=== PATIENT | female | born 1995 | race Caucasian/White ===

== ENCOUNTER 2017-03-11 09:48 | Emergency (ER) | payer MEDICAID ==
--- NOTE | 2017-03-11 10:35 | EDM.PDOC ---
ED HPI GENERAL MEDICAL PROBLEM - General Chief Complaint: RN [facility] Problem Stated Complaint: IUD ISSUES Time Seen by Provider: 03/11/17 10:00 Source of Information: Reports: Patient History Limitations: Reports: No Limitations - History of Present Illness INITIAL COMMENTS - FREE TEXT/NARRATIVE: Azalia comes to [facility] ED with pelvic pain, spotting, and desire to have IUD removed. An IUD was inserted at [facility] in [facility] about 10 weeks ago, and she has been having issues with spotting and cramps ever since. During coitus last pm, sxs appeared to escalate. She can still feel the string. She has taken no meds. ED ROS GENERAL - Review of Systems Review Of Systems: ROS reveals no pertinent complaints other than HPI. ED EXAM, GENERAL - Physical Exam Exam: See Below Exam Limited By: No Limitations General Appearance: Alert, WD/WN, No Apparent Distress, Anxious Head: Normocephalic Neck: Normal Inspection, Supple, Non-Tender Respiratory/Chest: Lungs Clear, Normal Breath Sounds Cardiovascular: Regular Rate, Rhythm, No Murmur GI/Abdominal: Normal Bowel Sounds, Soft, Non-Tender, No Organomegaly, No Distention, No Mass (Female) Exam: Normal External Exam, Cervical Discharge (BRB, string visible) , Vaginal Bleeding Back Exam: Normal Inspection Extremities: Normal Inspection Neurological: Alert, Oriented, CN II-XII Intact, Normal Cognition, Normal Gait, No Motor/Sensory Deficits Psychiatric: Normal Affect, Anxious Skin Exam: Warm, Dry Lymphatic: No Adenopathy ED GENERAL MEDICAL PROCEDURES - Additional/Other Procedure(s) Other (Free Text) Procedure(s): With patient consent, and nurse roll setter in attendance, a lighted speculum was introduced into the vaginal vault; the cervix was identified to be nulliparous, with minor BRB discharge and visible string. Next the string was grasped with a toothed tenaculum and the IUD was removed intact. A bimanual examination revealed the uterus to be in neutral position, normal in size, shape and consistency, adnexae negative. Patient tolerated IUD extraction well. Course - Vital Signs Text/Narrative:: Patient tolerated procedure well. Departure - Departure Time of Disposition: 10:25 Disposition: Home, Self-Care 01 Condition: Good Clinical Impression: Encounter for IUD removal - Discharge Information Referrals: PCP,Not In Area [Ordering Only Provider] - Forms: ED Department Discharge - Problem List & Annotations (1) Encounter for IUD removal SNOMED Code(s): 304998297 Code(s): Z30.432 - ENCOUNTER FOR REMOVAL OF INTRAUTERINE CONTRACEPTIVE DEVICE Status: Acute Current Visit: Yes Annotation/Comment:: I suggested analgesic of choice if needed, pads only until bleeding has subsided, and may resume protected coitus this weekend if tolerated. - Problem List Review Problem List Initiated/Reviewed/Updated: Yes - Assessment/Plan Plan: Follow up with PCP if needed.
== END 2017-03-11 10:45 | disposition home or self-care (01) ==
LOC: FB.ED 09:48
DX: Z30.432 Encounter for removal of intrauterine contraceptive device (principal)
CPT/HCPCS: 99283

== ENCOUNTER 2017-05-19 19:33 | Emergency (ER) | payer MEDICAID ==
[2017-05-19] MEDS ORDERED: hydrOXYzine HCl 50 MG/ML SDV IM ONE (20:02)
[2017-05-19] MEDS ORDERED: Ketorolac 60 MG/2 ML SDV IM ONE (20:02)
[2017-05-19] MEDS ORDERED: predniSONE 10 MG Tab PO ONE (20:38)
[2017-05-19] MEDS ORDERED: Azithromycin 250 MG Tab PO ONE (20:38)
--- NOTE | 2017-05-19 23:20 | ER ---
DATE SEEN: 05/19/2017 TIME SEEN: 2034 hours. REASON FOR VISIT: Cough. HISTORY OF PRESENT ILLNESS: A 22-year-old female complaining of a cough for a week. It is productive of yellow thick sputum, fever, sore throat, and hoarseness of the voice. REVIEW OF SYSTEMS: All other systems negative. SOCIAL HISTORY: Does not smoke. PAST MEDICAL HISTORY: Asthma. PHYSICAL EXAMINATION: GENERAL: Non-toxic. Afebrile. VITAL SIGNS: Blood pressure is normal, temperature 95.9. EARS, NOSE, AND THROAT: Negative. NECK: Supple. CHEST: Clear. CARDIOVASCULAR: Normal. RESPIRATORY: Normal. LABORATORY DATA: None. IMAGING STUDIES: Chest x-ray was unremarkable with exception of a barrel chest suggestive of airway obstruction. IMPRESSION: 1. Acute bronchitis. 2. Asthma exacerbation. TREATMENT: 1. Z-Fermin as directed. 2. Prednisone 10 mg twice a day. 3. Follow up in the office deni /[id number] GORDON/DOM
--- NOTE | 2017-05-20 14:02 | CR ---
INDICATION: Cough. CHEST: PA and lateral views of the chest were obtained 05/19/2017 and revealed infiltration extending into the left lower lobe, compatible with pneumonia. No definite pleural effusion was seen. No other acute process was suggested. The heart appears slightly generous in size. This should be correlated clinically. Minimal dextroconvex scoliosis of the mid thoracic spine is noted. IMPRESSION: 1. Findings are compatible with pneumonia in the left lower lobe - subsegmental in appearance and patchy in appearance. Follow-up to clearing may be warranted with this distribution. 2. The heart appears slightly prominent in size. This should be correlated clinically. 3. Minimal scoliosis. MTDD
== END 2017-05-19 20:45 | disposition home or self-care (01) ==
LOC: FB.ED 19:33
DX: J45.901 Unspecified asthma with (acute) exacerbation (principal); J20.9 Acute bronchitis, unspecified
CPT/HCPCS: 71020; 96372; 99283; A9270; J1885; J3410